=== PATIENT | male | born 1985 | race Caucasian/White ===

== ENCOUNTER 2016-11-24 12:42 | Emergency (ER) | payer BC ==
[~2016-11-24 12:42] MED LIST: BUSPIRONE HCL5 MG PO; CHILDRENS CHEWA81 MG PO; PRILOSEC OTC20 MG PO
[2016-11-24 14:43] LABS: BASO % 0.5 % (0.2-1.2); EOS # 0.1 10_X3_uL (0.0-0.5); EOS % 1.8 % (0.8-7.0); GRAN # 5.4 10_X3_uL (1.8-5.4); GRAN % 70.9 % (34.0-67.9); HEMATOCRIT 44.2 % (40-51); HEMOGLOBIN 15.6 g/dL (13.7-17.5); LYMPH # 1.4 10_X3_uL (1.3-3.6); LYMPH % 18.6 % (21.8-53.1); MEAN CORPUSCULAR HEMOGLOBIN 30.7 pg (27.0-33.0); MEAN CORPUSCULAR HGB CONC 35.3 g/dL (32.0-36.0); MEAN PLATELET VOLUME 10.8 fl (7.5-11.5); MONO # 0.6 10_X3_uL (0.3-0.8); MONO % 8.2 % (5.3-12.2); PLATELET COUNT 183 x10_3/uL (163-337); RED BLOOD COUNT 5.08 x10_6/uL (4.6-6.1); RED CELL DISTRIBUTION WIDTH 12.9 % (11.6-14.4); WHITE BLOOD COUNT 7.6 x10_3/uL (4.2-9.1)
[2016-11-24 14:57] LABS: ALBUMIN 4.7 gm/dL (3.4-5.0); ALKALINE PHOSPHATASE 47 U/L (50-136); ALT/SGPT 59 U/L (7.53-40.17); AST/SGOT 33 U/L (6.66-35.34); BILIRUBIN,TOTAL 0.78 mg/dL (0.0-1.0); BLOOD UREA NITROGEN 13 mg/dL (7-18); CARBON DIOXIDE 27 mmol/L (21-32); CREATININE 0.9 mg/dL (0.6-1.3); GLUCOSE,RANDOM 98 mg/dL (70-99); SODIUM 140 mmol/L (136-145); TOTAL PROTEIN 7.4 gm/dL (6.4-8.2)
== END 2016-11-24 16:21 | disposition home or self-care (01) ==
LOC: ER 12:42
PROVIDERS: Internal Medicine
DX: H81.10 Benign paroxysmal vertigo, unspecified ear (principal); R11.2 Nausea with vomiting, unspecified
CPT/HCPCS: 36415; 70450; 70486; 80053; 85025; 96361; 96374; 96375; 99284-25; J3360